=== PATIENT | female | born 1975 | race Caucasian/White ===

== ENCOUNTER 2017-11-01 02:17 | Observation (INO) | payer OTHER ==
[~2017-11-01] VITALS: Ht 154.9 cm; Wt 54.6 kg
[2017-11-01 03:13] LABS: BASOPHIL % 0.4 % (0-2); PLATELET COUNT 216 x10^3mcL (130-400)
[2017-11-01 03:23] LABS: CALCIUM 8.8 mg/dL (8.5-10.1); CARBON DIOXIDE 27.3 mmol/L (21-32); CHLORIDE SERUM 101 mmol/L (98-107); CREATININE SERUM 0.8 mg/dL (0.6-1.0); GFR1 > 60 mL/min; GLUCOSE SERUM 178 mg/dL (74-106); POTASSIUM SERUM 3.1 mmol/L (3.5-5.1); SODIUM SERUM 137 mmol/L (136-145)
[2017-11-01 03:29] LABS: ALBUMIN 4.1 g/dL (3.4-5.0); ALKALINE PHOSPHATASE 65 U/L (46-116); ALT/SGPT 19 U/L (14-59); AST/SGOT 19 U/L (15-37); BILIRUBIN TOTAL 0.2 mg/dL (0.20-1.00); TOTAL PROTEIN, SERUM 7.5 g/dL (6.4-8.2)
[2017-11-01] MEDS ORDERED: AMITRIPTYLINE H10 MG (06:08)
[2017-11-01] MEDS ORDERED: MERCAPTOPURINE (06:08)
[2017-11-01 06:37] VITALS: BP 144/80
[2017-11-01 07:23] LABS: AMPHETAMINE QUAL UR NONE DETECTED (See below)
[2017-11-01 08:48] VITALS: BP 144/80
[2017-11-01 10:00] VITALS: BP 93/68
[2017-11-01 13:45] VITALS: BP 94/60
[2017-11-01 17:15] VITALS: BP 112/70
[2017-11-01 18:44] VITALS: BP 112/70
== END 2017-11-01 19:13 | disposition home or self-care (01) | DRG 897 ==
LOC: ED 02:17 → DU 05:42 → MU 08:39
PROVIDERS: Emergency Medicine
DX: F12.129 Cannabis abuse with intoxication, unspecified (principal); J44.9 Chronic obstructive pulmonary disease, unspecified; E87.6 Hypokalemia; F17.210 Nicotine dependence, cigarettes, uncomplicated
CPT/HCPCS: 83880; G0378; G0480; J2060; J2405; J7030; J7120